=== PATIENT | female | born 1985 | race Two or more races ===

== ENCOUNTER 2018-05-31 11:27 | Emergency (ER) | payer MEDICAID ==
[~2018-05-31] VITALS: Ht 167.6 cm; Wt 137.9 kg
--- NOTE | 2018-05-31 11:30 | NUR ---
PT SANDRA FROM HOME TO ER BED 09. PER EMS REPORT, WITNESSED SEIZURE LIKE ACTIVITY BY HOUSEMATE. NO KNOWN SEIZURE HX. BLOOD SUGAR 166 IN THE FIELD. NO ORAL TRAUMA NOTED. PLACED ON SEIZURE PRECAUTION. AWAITING MD TUCKER.
[2018-05-31 12:50] LABS: BASOPHILS # (AUTO) 0.1 /CMM (0.0-0.2); BASOPHILS % (AUTO) 0.9 % (0.0-2.0); HEMATOCRIT 39 % (33-45); HEMOGLOBIN 13.2 g/dL (11.5-14.8); LYMPHOCYTES # (AUTO) 3.3 /CMM (0.8-4.8); LYMPHOCYTES % (AUTO) 33.5 % (20.0-44.0); MEAN CORPUSCULAR HGB CONC 34 g/dl (31.0-36.0); MEAN CORPUSCULAR VOLUME 84 fL (82-100); MONOCYTES # (AUTO) 0.6 /CMM (0.1-1.30); MONOCYTES % (AUTO) 6.2 % (2.0-12.0); NEUTROPHILS # (AUTO) 5.7 /CMM (1.8-8.9); NEUTROPHILS % (AUTO) 57.4 % (43.0-81.0); PLATELET COUNT (AUTO) 349 /CMM (150-450); RDW COEFFICIENT OF VARIATION 13.1 (11.5-15.0); RED BLOOD CELL COUNT(AUTO) 4.62 MIL/uL (4.0-5.2); WHITE BLOOD COUNT (AUTO) 9.9 K/uL (4.3-11.0)
[2018-05-31] MEDS: IV NS 0.9% 500 ML BAG IV ONE (12:52)
[2018-05-31 12:54] LABS: CALCIUM, SERUM 9.1 mg/dL (8.5-10.1); CREATININE 0.7 mg/dL (0.6-1.3); POTASSIUM 3.6 mmol/L (3.5-5.1)
--- NOTE | 2018-05-31 12:55 | NUR ---
PT NOW AWAKE. UNABLE TO RECALL WHAT HAPPEN. STATES NO SEIZURE HX. STABLE VITALS.
--- NOTE | 2018-05-31 15:26 | NUR ---
Patient discharged to home in stable condition. Written and verbal after care instructions given. Patient verbalizes understanding of instruction.IV removed. Catheter intact and site benign. Pressure and 4x4 applied to site. No bleeding noted.
[2018-05-31 15:28] VITALS: BP 125/60
== END 2018-05-31 15:29 | disposition home or self-care (01) ==
LOC: ER 11:28
DX: R56.9 Unspecified convulsions (principal); R53.1 Weakness
CPT/HCPCS: 36415; 70450; 80048; 85025; 99285; A4606; J7040; Z7610